=== PATIENT | female | born 1965 | race Caucasian/White ===

== ENCOUNTER 2018-01-14 13:11 | Inpatient (IN) | payer MEDICAID ==
[2018-01-14] MEDS ORDERED: GELATIN SIZE 100 SPONGE (15:45)
[2018-01-14] MEDS ORDERED: LIDOCAINE 2% (SDV) 5 ML INJ (15:49)
[2018-01-14] MEDS ORDERED: GLYCOPYRROLATE 0.4 MG INJ ×2 (15:49→18:06)
[2018-01-14] MEDS ORDERED: MEPERIDINE 100 MG INJ (15:49)
[2018-01-14] MEDS ORDERED: SUCCINYLCHOLINE CHLORIDE 100 MG/5 ML SYG IV (15:49)
[2018-01-14] MEDS ORDERED: ROCURONIUM 50 MG INJ ×2 (15:49→18:06)
[2018-01-14] MEDS ORDERED: NEOSTIGMINE 3 MG/3 ML SYRINGE ×2 (15:49→18:06)
[2018-01-14] MEDS ORDERED: PROPOFOL 20 ML (15:49)
[2018-01-14] MEDS ORDERED: DEXAMETHASONE 4 MG/ML 1 ML INJ (16:23)
[2018-01-14] MEDS ORDERED: CEFAZOLIN 1 GM INJ (16:23)
[2018-01-14] MEDS: THROMBIN 5000 UNIT VIAL (16:54)
[2018-01-14] MEDS: POLYMYXIN/BACITRACIN 1L IRRIG (16:54)
[2018-01-14] MEDS: ROPIVACAINE 0.5 % 30 ML VIAL ×2 (18:31→18:42)
[2018-01-14] MEDS ORDERED: ONDANSETRON 4 MG INJ (18:42)
[2018-01-14] MEDS ORDERED: MEPERIDINE 25 MG INJ IV (19:00)
[2018-01-14] MEDS ORDERED: LABETALOL HCL 20MG INJ IV (19:00)
[2018-01-14] MEDS ORDERED: NACL 0.9% 3 ML SYG IV (19:00)
[2018-01-14] MEDS ORDERED: HYDROmorphONE (0.2 MG/ML) 10ML SYG IV ×2 (19:00)
[2018-01-14] MEDS ORDERED: EPHEDrine SULFATE 50 MG/5 ML SYG IV (19:00)
[2018-01-14] MEDS: DOCUSATE SODIUM 100 MG CAP PO ×2 (19:00→21:00)
[2018-01-14] MEDS ORDERED: DIPHENHYDRAMINE 50 MG INJ IV (19:00)
[2018-01-14] MEDS ORDERED: hydrALAzine 20 MG INJ IV (19:00)
[2018-01-14] MEDS ORDERED: CEFAZOLIN 1 GM/50 ML (PMX) 50 ML IVPB (19:00)
[2018-01-14] MEDS ORDERED: FENTAnyl 50 MCG/ML VIAL IV ×2 (19:00)
[2018-01-14] MEDS ORDERED: MIDAZOLAM 1 MG/ML 2 ML INJ IV (19:00)
[2018-01-14] MEDS ORDERED: NALOXONE (0.4 MG/ML) INJ IV (19:00)
[2018-01-14] MEDS ORDERED: METOCLOPRAMIDE 10 MG INJ IV (19:00)
[2018-01-14] MEDS ORDERED: AL HYDROX/MG HYDROX/SIMETH 30 ML CUP PO (19:00)
[2018-01-14] MEDS ORDERED: OXYCODONE/ACETAMINOPHEN (5/325) TAB PO ×2 (19:00)
[2018-01-14] MEDS ORDERED: HYDROCODONE/APAP (5/325) TAB PO (19:00)
[2018-01-14] MEDS ORDERED: MIDAZOLAM 1 MG/ML 2 ML INJ (19:03)
[2018-01-14] MEDS ORDERED: FENTAnyl 50 MCG/ML VIAL (19:04)
[2018-01-14] MEDS ORDERED: LORAZEPAM 2 MG INJ (19:40)
[2018-01-14] MEDS: HYDROmorphONE (0.2 MG/ML) 10ML SYG IV ×2 (19:42→20:23)
[2018-01-14] MEDS: ONDANSETRON 4 MG INJ IV (19:42)
[2018-01-14] MEDS: LORAZEPAM 2 MG INJ IV (19:47)
[2018-01-14] MEDS: MIDAZOLAM 1 MG/ML 2 ML INJ IV (20:00)
[2018-01-14] MEDS: HYDROmorphONE 0.2 MG/ML PCA IV (20:22)
[2018-01-14] MEDS ORDERED: HYDROmorphONE 0.5 MG/0.5 ML SYG IV (22:00)
[2018-01-14] MEDS: FENTAnyl 50 MCG/ML VIAL IV (22:04)
[2018-01-14] MEDS: NS + KCL 20 MEQ 1,000 ML IV (22:06)
[2018-01-14] MEDS: CEFAZOLIN 1 GM/50 ML (PMX) 50 ML IVPB (22:24)
[2018-01-15] MEDS: CEFAZOLIN 1 GM/50 ML (PMX) 50 ML IVPB ×3 (04:28→16:09)
[2018-01-15 05:52] LABS: HEMATOCRIT 35.7 % (37.0-47.0); HEMOGLOBIN 11.9 g/dl (12.0-16.0)
[2018-01-15 07:07] LABS: ANION GAP 16 (8-16); BLOOD UREA NITROGEN 15 mg/dl (7-20); CALCIUM 8.4 mg/dl (8.4-10.2); CARBON DIOXIDE 24 mmol/L (21-31); CHLORIDE 107 mmol/L (97-110); CREATININE 0.57 mg/dl (0.44-1.00); GLUCOSE 132 mg/dl (70-220); POTASSIUM 4.4 mmol/L (3.5-5.1); SODIUM 143 mmol/L (135-144)
[2018-01-15] MEDS: DOCUSATE SODIUM 100 MG CAP PO ×2 (09:24→21:14)
[2018-01-15] MEDS: NS + KCL 20 MEQ 1,000 ML IV ×3 (09:46→21:19)
[2018-01-15] MEDS: HYDROmorphONE 0.2 MG/ML PCA IV (13:34)
[2018-01-15] MEDS: ONDANSETRON 4 MG INJ IV ×2 (14:06→21:16)
[2018-01-16] MEDS: HYDROmorphONE 0.2 MG/ML PCA IV (02:49)
[2018-01-16] MEDS: DOCUSATE SODIUM 100 MG CAP PO ×2 (09:00→21:11)
[2018-01-16] MEDS: ONDANSETRON 4 MG INJ IV (09:32)
[2018-01-16] MEDS: NS + KCL 20 MEQ 1,000 ML IV ×2 (09:36→21:00)
[2018-01-16] MEDS: METOCLOPRAMIDE 10 MG INJ IV (12:45)
[2018-01-16] MEDS: OXYCODONE/ACETAMINOPHEN (5/325) TAB PO ×3 (13:35→22:14)
[2018-01-16] MEDS: ALPRAZOLAM 1 MG TAB PO (18:14)
[2018-01-17] MEDS: ALPRAZOLAM 1 MG TAB PO ×2 (00:13→20:19)
[2018-01-17] MEDS: OXYCODONE/ACETAMINOPHEN (5/325) TAB PO ×5 (03:25→21:06)
[2018-01-17] MEDS: NS + KCL 20 MEQ 1,000 ML IV ×2 (07:00→17:00)
[2018-01-17] MEDS: DOCUSATE SODIUM 100 MG CAP PO ×2 (07:42→20:19)
[2018-01-18] MEDS: OXYCODONE/ACETAMINOPHEN (5/325) TAB PO ×3 (01:17→12:05)
[2018-01-18] MEDS: NS + KCL 20 MEQ 1,000 ML IV ×2 (03:00→12:51)
[2018-01-18] MEDS: ALPRAZOLAM 1 MG TAB PO ×2 (04:03→11:12)
[2018-01-18] MEDS: DOCUSATE SODIUM 100 MG CAP PO (09:00)
== END 2018-01-18 14:53 | disposition home health service (06) | DRG 30 ==
LOC: REC 13:11 → MS1 01-15 13:48 → ICU 23:54
PROC: 0RG2071 Fusion of 2 or more Cervical Vertebral Joints with Autologous Tissue Substitute, Posterior Approach, Posterior Column, Open Approach (ICD-10-PCS; principal; 2018-01-14 15:30)
PROC: 01N10ZZ Release Cervical Nerve, Open Approach (ICD-10-PCS; 2018-01-14 15:30)
PROC: 4A11X4G Monitoring of Peripheral Nervous Electrical Activity, Intraoperative, External Approach (ICD-10-PCS; 2018-01-14 15:30)
DX: M54.12 Radiculopathy, cervical region (principal); M48.02 Spinal stenosis, cervical region; M46.02 Spinal enthesopathy, cervical region; I10 Essential (primary) hypertension; Z87.891 Personal history of nicotine dependence
CPT/HCPCS: 72020; 72125; 80048; 85014; 85018; 86850; 86900; 86901; 87086; 97116; 97161

== ENCOUNTER 2019-02-08 06:41 | Inpatient (IN) | payer MEDICAID ==
[2019-02-08] MEDS ORDERED: MIDAZOLAM 1 MG/ML 2 ML INJ ×2 (09:22→12:06)
[2019-02-08] MEDS ORDERED: DEXAMETHASONE 4 MG/ML 5 ML INJ (10:01)
[2019-02-08] MEDS: POLYMYXIN/BACITRACIN 1L IRRIG (10:47)
[2019-02-08] MEDS: THROMBIN 5000 UNIT VIAL (11:13)
[2019-02-08] MEDS: GELATIN SIZE 100 SPONGE (11:13)
[2019-02-08] MEDS ORDERED: ROCURONIUM 50 MG INJ (11:36)
[2019-02-08] MEDS ORDERED: CEFAZOLIN 1 GM INJ (11:36)
[2019-02-08] MEDS ORDERED: LIDOCAINE 2% (SDV) 5 ML INJ (11:36)
[2019-02-08] MEDS ORDERED: PROPOFOL 20 ML (11:36)
[2019-02-08] MEDS ORDERED: METOCLOPRAMIDE 10 MG INJ (11:43)
[2019-02-08] MEDS ORDERED: ONDANSETRON 4 MG INJ (11:43)
[2019-02-08] MEDS ORDERED: METOCLOPRAMIDE 10 MG INJ IV (12:30)
[2019-02-08] MEDS ORDERED: NACL 0.9% 3 ML SYG IV (12:30)
[2019-02-08] MEDS ORDERED: DIPHENHYDRAMINE 50 MG INJ IV (12:30)
[2019-02-08] MEDS ORDERED: AL HYDROX/MG HYDROX/SIMETH 30 ML CUP PO (12:30)
[2019-02-08] MEDS ORDERED: MIDAZOLAM 1 MG/ML 2 ML INJ IV (12:30)
[2019-02-08] MEDS ORDERED: NALOXONE (0.4 MG/ML) INJ IV (12:30)
[2019-02-08] MEDS ORDERED: ONDANSETRON 4 MG INJ IV (12:30)
[2019-02-08] MEDS: NS + KCL 20 MEQ 1,000 ML IV ×2 (13:01→23:17)
[2019-02-08] MEDS: DOCUSATE SODIUM 100 MG CAP PO ×2 (13:03→21:46)
[2019-02-08] MEDS: HYDROmorphONE 1 MG/5 ML IV SYRINGE IV ×3 (13:05→13:39)
[2019-02-08] MEDS: FENTAnyl 50 MCG/ML VIAL IV ×4 (14:17→15:15)
[2019-02-08] MEDS: CEFAZOLIN 2 GM/50 ML (PMX) 50 ML IVPB ×2 (14:19→23:16)
[2019-02-08] MEDS: HYDROmorphONE 0.5 MG/0.5 ML SYG IV ×2 (17:11→21:13)
[2019-02-08] MEDS: ONDANSETRON 4 MG INJ IV ×2 (17:11→20:40)
[2019-02-08] MEDS: AMLODIPINE 2.5 MG TAB PO (21:00)
[2019-02-08] MEDS: METOPROLOL 50 MG TAB PO (21:00)
[2019-02-09] MEDS: ONDANSETRON 4 MG INJ IV ×2 (04:12→11:42)
[2019-02-09] MEDS: HYDROmorphONE 0.5 MG/0.5 ML SYG IV ×2 (04:22→11:42)
[2019-02-09 05:18] LABS: HEMATOCRIT 37.5 % (37.0-47.0); HEMOGLOBIN 12.5 g/dl (12.0-16.0)
[2019-02-09 05:38] LABS: ANION GAP 7 (5-13); BLOOD UREA NITROGEN 13 mg/dl (7-20); CALCIUM 8.7 mg/dl (8.4-10.2); CARBON DIOXIDE 25 mmol/L (21-31); CHLORIDE 105 mmol/L (97-110); CREATININE 0.61 mg/dl (0.44-1.00); Estimated GFR > 60 mL/min (>60); GLUCOSE 128 mg/dl (70-220); POTASSIUM 4.3 mmol/L (3.5-5.1); SODIUM 137 mmol/L (135-144)
[2019-02-09] MEDS: CEFAZOLIN 2 GM/50 ML (PMX) 50 ML IVPB ×2 (06:01→13:55)
[2019-02-09] MEDS: DOCUSATE SODIUM 100 MG CAP PO ×2 (10:21→20:50)
[2019-02-09] MEDS: NS + KCL 20 MEQ 1,000 ML IV (10:21)
[2019-02-09] MEDS: METOPROLOL 50 MG TAB PO (20:49)
[2019-02-09] MEDS: AMLODIPINE 2.5 MG TAB PO (20:50)
[2019-02-09] MEDS: HYDROCODONE/APAP (5/325) TAB PO (20:51)
[2019-02-09] MEDS: ONDANSETRON 4 MG TAB PO (20:51)
[2019-02-10] MEDS: HYDROCODONE/APAP (5/325) TAB PO ×2 (02:42→08:16)
[2019-02-10] MEDS: DOCUSATE SODIUM 100 MG CAP PO (08:16)
[2019-02-10] MEDS ORDERED: MUPIROCIN 2% 22 GM OINT TOP (21:00)
== END 2019-02-10 12:30 | disposition left against medical advice (07) | DRG 473 ==
LOC: REC 06:41 → ICU 17:15
PROC: 0RG20A0 Fusion of 2 or more Cervical Vertebral Joints with Interbody Fusion Device, Anterior Approach, Anterior Column, Open Approach (ICD-10-PCS; principal; 2019-02-08 09:00)
PROC: 0RB30ZZ Excision of Cervical Vertebral Disc, Open Approach (ICD-10-PCS; 2019-02-08 09:00)
PROC: 4A11X4G Monitoring of Peripheral Nervous Electrical Activity, Intraoperative, External Approach (ICD-10-PCS; 2019-02-08 09:00)
DX: M47.12 Other spondylosis with myelopathy, cervical region (principal); M47.22 Other spondylosis with radiculopathy, cervical region; I10 Essential (primary) hypertension; F17.200 Nicotine dependence, unspecified, uncomplicated
CPT/HCPCS: 72020; 72125; 80048; 84703; 85014; 85018; 86850; 86900; 86901; 87081; 87086; 88304; 97116; 97162; 97530